=== PATIENT | female | born 1950 | race Caucasian/White ===

== ENCOUNTER 2018-10-14 10:52 | Outpatient (CLI) | payer MEDICARE, OTHER ==
--- NOTE | 2018-10-14 11:28 | MMO ---
Bilateral MAMMO Bilat Screen [facility]. CLINICAL HISTORY: Patient is 68 years old and is seen for screening. The patient has no family history of breast cancer. The patient has no personal history of cancer. The patient has a history of left needle biopsy in 2006 - benign and right Excisional Biopsy - benign. VIEWS: The views performed were: bilateral craniocaudal with tomosynthesis and bilateral mediolateral oblique with tomosynthesis. FILMS COMPARED: The present examination has been compared to prior imaging studies performed at [facility] on 03/03/2007, at [facility] on 12/03/2013 and 06/12/2016, and at [facility] on 06/30/2012. MAMMOGRAM FINDINGS: There are scattered fibroglandular densities. There are benign appearing calcifications seen in both breasts. There are no suspicious masses, suspicious calcifications, or new areas of architectural distortion. IMPRESSION: THERE IS NO MAMMOGRAPHIC EVIDENCE OF MALIGNANCY. A ROUTINE FOLLOW-UP MAMMOGRAM IN 1 YEAR IS RECOMMENDED. THE RESULTS OF THIS EXAM WERE SENT TO THE PATIENT. ACR BI-RADS Category 2 - Benign finding MAMMOGRAPHY NOTE: 1. A negative mammogram report should not delay a biopsy if a dominant of clinically suspicious mass is present. 2. Approximately 10% to 15% of breast cancers are not detected by mammography. 3. Adenosis and dense breasts may obscure an underlying neoplasm.
--- NOTE | 2018-10-14 12:52 | BD ---
Exam: DEXA Bone Density Indication: Post-menopausal osteoporosis screening. Lumbar Spine: BMD (g/cm2) L1 1.004 T-Score: 0.1 L2 1.062 T-Score: 0.3 L3 1.148 T-Score: 0.6 L4 1.113 T-Score: 0.5 L1-L4 1.087 T-Score: 0.4 06-12-16: Total density 1.085 07-10-12: Total density 1.036 Femoral Neck: 0.807 T-Score: -0.4 Total Femur: 0.995 T-Score: 0.4 06-12-16: Total density 0.989 07-10-12: Total density 1.019 Impression: Bone mineral density of the lumbar spine and femoral neck are within normal range. POS: OFF
== END 2018-10-14 10:53 | disposition home or self-care (01) ==
LOC: BICMAMMO 10:52
PROVIDERS: ATTEND Family Medicine
DX: Z12.31 Encounter for screening mammogram for malignant neoplasm of breast (principal); Z78.0 Asymptomatic menopausal state
CPT/HCPCS: 77063; 77067; 77080

== ENCOUNTER 2020-01-26 12:18 | Outpatient (CLI) | payer MEDICARE, OTHER ==
--- NOTE | 2020-01-26 13:00 | MMO ---
Bilateral MAMMO Bilat Screen [facility]. CLINICAL HISTORY: Patient is 69 years old and is seen for screening. The patient has no family history of breast cancer. The patient has no personal history of cancer. The patient has a history of left needle biopsy in 2006 - benign and right Excisional Biopsy - benign. VIEWS: The views performed were: bilateral craniocaudal with tomosynthesis and bilateral mediolateral oblique with tomosynthesis. FILMS COMPARED: The present examination has been compared to prior imaging studies performed at [facility] on 12/03/2013, 06/12/2016 and 10/14/2018, and at [facility] on 06/30/2012. This study has been interpreted with the assistance of computer-aided detection. MAMMOGRAM FINDINGS: There are scattered fibroglandular densities. There are stable benign appearing calcifications seen in both breasts. There are no suspicious masses, suspicious calcifications, or new areas of architectural distortion. IMPRESSION: THERE IS NO MAMMOGRAPHIC EVIDENCE OF MALIGNANCY. A ROUTINE FOLLOW-UP MAMMOGRAM IN 1 YEAR IS RECOMMENDED. THE RESULTS OF THIS EXAM WERE SENT TO THE PATIENT. ACR BI-RADS Category 2 - Benign finding MAMMOGRAPHY NOTE: 1. A negative mammogram report should not delay a biopsy if a dominant of clinically suspicious mass is present. 2. Approximately 10% to 15% of breast cancers are not detected by mammography. 3. Adenosis and dense breasts may obscure an underlying neoplasm. Reported by: MALICK MERLOS MD Electonically Signed: [id number]
== END 2020-01-26 12:19 | disposition home or self-care (01) ==
LOC: BICMAMMO 12:18
PROVIDERS: ATTEND Family Medicine
DX: Z12.31 Encounter for screening mammogram for malignant neoplasm of breast (principal); Z91.89 Other specified personal risk factors, not elsewhere classified
CPT/HCPCS: 77063; 77067

== ENCOUNTER 2022-05-18 19:00 | Outpatient (CLI) | payer MEDICARE, OTHER | END 2022-05-18 19:01 | disposition home or self-care (01) | LOC: SLEEPLAB 19:00 | PROVIDERS: ATTEND Family Medicine | DX: G47.9 Sleep disorder, unspecified (principal); F51.9 Sleep disorder not due to a substance or known physiological condition, unspecified; R53.83 Other fatigue; R06.83 Snoring; I10 Essential (primary) hypertension; G20 Parkinson's disease; E11.9 Type 2 diabetes mellitus without complications; E78.5 Hyperlipidemia, unspecified; G47.61 Periodic limb movement disorder; Z96.82 Presence of neurostimulator | CPT/HCPCS: 95810 ==

== ENCOUNTER 2023-10-17 08:34 | Outpatient (CLI) | payer MEDICARE, OTHER | END 2023-10-17 08:35 | disposition home or self-care (01) | LOC: BICMAMMO 08:34 | PROVIDERS: ATTEND Family Medicine | DX: Z12.31 Encounter for screening mammogram for malignant neoplasm of breast (principal); Z13.820 Encounter for screening for osteoporosis; Z91.89 Other specified personal risk factors, not elsewhere classified | CPT/HCPCS: 77063; 77067; 77080 ==